=== PATIENT | female | born 1970 | race Two or more races ===

== ENCOUNTER 2019-04-30 06:05 | Day surgery (SDC) | payer BC ==
[~2019-04-30] VITALS: Ht 165.1 cm; Wt 51.7 kg
[2019-04-30] VITALS (8 sets, daily range): BP systolic 97–106; BP diastolic 72–78
[~2019-04-30 06:05] MED LIST: LR 1000ml 1,000 ML IVLG SCH
[2019-04-30] MEDS ORDERED: Lidocaine 1% Plain 30 ml INJ ONE (06:44)
[2019-04-30] MEDS ORDERED: ESTROGEN CREAM TOPIC (06:47)
[2019-04-30] MEDS ORDERED: PROGESTERONE100 MG PO (06:47)
[2019-04-30] MEDS ORDERED: Propofol 200mg/20ml IV ONE (07:00)
[2019-04-30] MEDS ORDERED: LR 1000ml ONE (07:00)
--- NOTE | 2019-04-30 07:14 | Short Stay Surgery H&P ---
History of Present Illness History of Present Illness Chief Complaint screening colon HPI Karyn Weber is a 48 year old female who was admitted on for Colon Screening Patient History Allergies: Coded Allergies: No Known Allergies (Unverified , 03/16/19) Medication History Scheduled Progesterone,Micronized (Progesterone), 100 MG PO DAILY, (Reported) [Estrogen Cream], Unknown Dose TOPIC DAILY, (Reported) Physical Exam Vital Signs Last Vital Signs Date Time Temp Pulse Resp B/P (MAP) Pulse Ox O2 Delivery O2 Flow Rate FiO2 04/30/19 07:11 Room Air 04/30/19 07:03 97.0 18 97/73 97 04/30/19 06:42 66 Labs Laboratory Tests Test 04/30/19 06:20 04/30/19 06:55 Urine HCG, Qualitative Pending Human Chorionic Gonadotropin, Qual Pending Plan Attestation Are the patient's medical conditions optimized for surgery? Bibiana Green MD Apr 30, 2019 07:14
--- NOTE | 2019-04-30 07:15 | Pre-Procedure Note/Attestation ---
Pre-Procedure Note/Attestation Complete Prior to Procedure Planned Procedure: not applicable Procedure Narrative: colonoscopy Indications for Procedure Pre-Operative Diagnosis: screening Attestation I attest that I discussed the nature of the procedure; its benefits; risks and complications; and alternatives (and the risks and benefits of such alternatives ), prior to the procedure, with the patient (or the patient's legal sales service representative). I attest that, if there was a reasonable possibility of needing a blood transfusion, the patient (or the patient's legal sales service representative) was given the [facility] standardized written summary, pursuant to the [place] Blood Safety Act ([place] Health and Safety Code # 1645, as amended). I attest that I re-evaluated the patient just prior to the surgery and that there has been no change in the patient's H&P, except as documented below: Bibiana Green MD Apr 30, 2019 07:15
[2019-04-30] MEDS ORDERED: LR 1000ml 1,000 ML IVLG SCH (07:17)
--- NOTE | 2019-04-30 07:28 | Anethesia Preoperative Eval ---
Anesthesia Pre-op PMH/ROS General Date of Evaluation: Apr 30, 2019 Time of Evaluation: 07:01 Anesthesiologist: Mirella ASA Score: ASA 1 Mallampati Score Class I : Soft palate, uvula, fauces, pillars visible Class II: Soft palate, uvula, fauces visible Class III: Soft palate, base of uvula visible Class IV: Only hard plate visible Mallampati Classification: Class I Surgeon: Norma Diagnosis: Abd Pain Surgical Procedure: Colonoscopy Anesthesia History: none Family History: no anesthesia problems Allergies: Coded Allergies: No Known Allergies (Unverified , 03/16/19) Medications: see eMAR Patient NPO?: Yes Past Medical History PSxH Narrative: Neck Sx Anesthesia Pre-op Phys. Exam Physician Exam Last Vital Signs Date Time Temp Pulse Resp B/P (MAP) Pulse Ox O2 Delivery O2 Flow Rate FiO2 04/30/19 07:11 Room Air 04/30/19 07:03 97.0 18 97/73 97 04/30/19 06:42 66 Constitutional: NAD Neurologic: CN 2-12 intact Cardiovascular: RRR Respiratory: CTA Gastrointestinal: S/NT/ND Airway Exam Mallampati Score: Class II MO: full ROM: full Teeth: intact Anesthesia Pre-op A/P Labs Chemistry Test 04/30/19 06:55 Human Chorionic Gonadotropin, Qual Pending Urine Test Test 04/30/19 06:20 Urine HCG, Qualitative Pending Serum Test Test 04/30/19 06:55 Human Chorionic Gonadotropin, Qual Pending Risk Assessment & Plan Assessment: ASA 1 Plan: TIVA Status Change Before Surgery: No Emmanuel Vu MD Apr 30, 2019 07:28
[2019-04-30] MEDS ORDERED: Midazolam 2mg/2ml Inj IVP PRN (07:30)
[2019-04-30] MEDS ORDERED: Atropine Sulfate 0.4mg/ml inj IVP PRN (07:30)
[2019-04-30] MEDS ORDERED: LORazepam Inj 2mg/ml 1ml IV PRN (07:30)
[2019-04-30] MEDS ORDERED: HYDROcodone/Acetamin 7.5/325 tab ORAL PRN (07:30)
[2019-04-30] MEDS ORDERED: Ketorolac 30mg Inj IV PRN ×2 (07:30)
[2019-04-30] MEDS ORDERED: Hydromorphone 0.5mg/0.5ml inj IVP PRN (07:30)
[2019-04-30] MEDS ORDERED: Metoclopramide 10mg/2ml Inj IVP PRN (07:30)
[2019-04-30] MEDS ORDERED: HYDROcodone/Acetamin 5/325 tab ORAL PRN (07:30)
[2019-04-30] MEDS ORDERED: oxyCODONE HCL/Acetaminophen 5/325mg ORAL PRN (07:30)
[2019-04-30] MEDS ORDERED: fentaNYL 100 mcg/2 mL IV PRN (07:30)
[2019-04-30] MEDS ORDERED: DiphenhydrAMINE 50mg/ml Inj IVP PRN (07:30)
[2019-04-30] MEDS ORDERED: Labetalol 5mg/ml 20ml vial IV PRN (07:30)
[2019-04-30] MEDS ORDERED: Meperidine 25mg/0.5ml Inj (FOR RIGORS ONLY) IV PRN (07:30)
--- NOTE | 2019-04-30 07:30 | Immediate Post-Op Evaluation ---
Immediate Post-Op Evalulation Immediate Post-Op Evalulation Procedure: Colonoscopy Date of Evaluation: Apr 30, 2019 Time of Evaluation: 08:18 IV Fluids: 800 LR Blood Products: 0 Estimated Blood Loss: 2 Urinary Output: 0 Blood Pressure Systolic: 106 Blood Pressure Diastolic: 74 Pulse Rate: 83 Respiratory Rate: 16 O2 Sat by Pulse Oximetry: 100 Temperature (Fahrenheit): 97.5 Pain Score (1-10): 2 Nausea: No Vomiting: No Complications 0 Patient Status: awake, reacts, patent, none Hydration Status: adequate Emmanuel Vu MD Apr 30, 2019 07:30
--- NOTE | 2019-04-30 07:31 | 48 Hour Post Anesthesia Eval ---
Post Anesthesia Evaluation Procedure: Colonoscopy Date of Evaluation: Apr 30, 2019 Time of Evaluation: 10:23 Blood Pressure Systolic: 101 0: 78 Pulse Rate: 76 Respiratory Rate: 18 Temperature (Fahrenheit): 98.2 Airway: patent Nausea: No Vomiting: No Pain Intensity: 1 Hydration Status: adequate Cardiopulmonary Status: Stable Mental Status/LOC: patient returned to baseline Follow-up Care/Observations: 0 Post-Anesthesia Complications: 0 Follow-up care needed: ready to discharge Emmanuel Vu MD Apr 30, 2019 07:31
--- NOTE | 2019-04-30 14:30 | Operative Note - Dictated ---
DATE OF OPERATION: 04/30/2019 GASTROENTEROLOGY PROCEDURE PROCEDURE: Screening colonoscopy. SURGEON: Bibiana Green M.D. ANESTHESIA: Please see the separate anesthesiologist notes. PRE-ENDOSCOPIC DIAGNOSIS: Screening. POST-ENDOSCOPIC DIAGNOSIS: Normal colonic mucosa including 5 cm of the terminal ileum. No polyps or masses identified. DESCRIPTION OF PROCEDURE: The procedure, its risks, indications, alternatives, and possible complications were explained and an informed consent was obtained. The patient was then sedated and a rectal exam was done. The colonoscope was advanced all the way to the cecum and then 5 cm into the terminal ileum. There was significant twisting and redundancy of the colon. The colonoscope was then gradually withdrawn and the mucosa examined carefully. Examination of the colonic mucosa as well as the terminal ileal mucosa did not reveal any abnormalities. Retroflexed view of the rectum was remarkable. The patient was sent to recovery in good condition. COMPLICATIONS: None. RECOMMENDATIONS: Follow up with primary physician. Repeat colonoscopy in 10 years. Bibiana Green M.D. DR: ISIS JOB#: [id number] CC: BERNA
--- NOTE | 2019-04-30 21:18 | Endoscopy Procedure Note ---
Endoscopy Procedure Note General Indication for Procedure: screen Procedures Performed: colonoscopy Operative Findings/Diagnosis: normal Specimen: none Pt Tolerated Procedure Well: Yes Estimated Blood Loss: none Anesthesia Anesthesiologist: see report Anesthesia: MAC Medications Medication Given: see anesthesia record Inserted Devices Implant(s) used?: No GI Core Measures 50 yrs or older w/o bx or poly: Yes 10yrs. F/U recommended: Yes If not recommended, why?: 18 years or older w/prev. colo: No <3yrs. since last colonoscopy: No Med reason:<3 yrs.: System Reason:<3 yrs.: Last colonoscopy >= to 3yrs: Yes Bibiana Green MD Apr 30, 2019 21:18
--- NOTE | 2019-04-30 21:19 | Brief Operative Note ---
Immediate Post Operative Note Operative Note Chief Complaint: screen Pre-op Diagnosis: screening Procedure: colon Surgeon: zayra Specimen: none Complications: none Condition: stable Fluids: recorded Implant(s) used?: No Bibiana Green MD Apr 30, 2019 21:19
== END 2019-04-30 09:30 | disposition home or self-care (01) ==
LOC: GAS 06:05
DX: Z12.11 Encounter for screening for malignant neoplasm of colon (principal)
CPT/HCPCS: 36415; 45378; 84703; J2001; J2250; J2704; J7120; 94003; 94150